=== PATIENT | male | born 1990 | race American Indian/Alaskan Native ===

== ENCOUNTER 2017-10-22 14:01 | Emergency (ER) | payer BC ==
[2017-10-22 14:06] VITALS: BP 130/84
--- NOTE | 2017-10-22 14:46 | Emergency Department Report ---
ED Male HPI - General Chief complaint: Urogenital-Male Stated complaint: CHECK UP Time Seen by Provider: 10/22/17 14:26 Source: patient Mode of arrival: Ambulatory Limitations: No Limitations - History of Present Illness Initial comments: Mr Judge is a 27 year-old man who presents after exposure to STI. tested positive for trichomonas. He denies any symptoms. No penile pain or discharge. No testicular pain or swelling. No dysuria. no fever. Normal bowel and bladder function. No other complaints. Last STI testing 5 years ago. - Related Data Allergies Allergy/AdvReac Type Severity Reaction Status Date / Time No Known Allergies Allergy Unverified 10/22/17 14:03 ED Review of Systems ROS: Stated complaint: CHECK UP Other details as noted in HPI Comment: All other systems reviewed and negative ED Past Medical Hx - Past Medical History Previous Medical History?: No - Surgical History Past Surgical History?: Yes Hx Appendectomy: Yes - Social History Smoking Status: Never Smoker Substance Use Type: None ED Physical Exam - General Limitations: No Limitations General appearance: alert - Head Head exam: Present: atraumatic, normocephalic - Eye Eye exam: Present: normal appearance - ENT ENT exam: Present: normal exam, mucous membranes moist - Respiratory Respiratory exam: Absent: respiratory distress - Cardiovascular Cardiovascular Exam: Present: regular rate, normal rhythm - GI/Abdominal GI/Abdominal exam: Present: soft. Absent: distended, tenderness, guarding, rebound - Neurological Exam Neurological exam: Present: alert, oriented X3 - Skin Skin exam: Present: warm, dry, intact ED Course Vital Signs 10/22/17 14:03 Temperature 97.9 F Pulse Rate 50 L Respiratory 16 Rate Blood Pressure 130/84 O2 Sat by Pulse 100 Oximetry ED Medical Decision Making - Medical Decision Making Mr Judge is a 27 year-old man without PMH who presents after exposure to STD. no symptoms. Genital exam deferred. Sent GC/CT/trich. is send out lab. Empirically treated. Given care instructions, return precautions. Safe for DC to home Critical care attestation.: If time is entered above; I have spent that time in minutes in the direct care of this critically ill patient, excluding procedure time. ED Disposition Clinical Impression: STD exposure Disposition: DC-01 TO HOME OR SELFCARE Is pt being admited?: No Condition: Stable Instructions: Sexually Transmitted Diseases (ED), Safe Sex (ED) Referrals: PRIMARY CARE, [Primary Care Provider] - 3-5 Days
[2017-10-22] MEDS ORDERED: FLAGYL PO ONE (14:51)
[2017-10-22] MEDS ORDERED: ZITHROMAX PO ONE (14:51)
[2017-10-22] MEDS ORDERED: ROCEPHIN IM ONE (14:52)
[2017-10-22] MEDS ORDERED: XYLOCAINE 1% MPF 5 mL INFILTRATI ONE (14:52)
[2017-10-22 16:05] LABS: Bilirubin,Urine NEG (Negative); Blood,Urine NEG (Negative); Color,Urine Yellow (Yellow); Protein,Urine <15 mg/dL mg/dL (Negative); Urobilinogen,Urine < 2.0 mg/dL (<2.0); WBC,Urine < 1.0 /HPF (0.0-6.0)
== END 2017-10-22 15:42 | disposition home or self-care (01) ==
LOC: ED 14:01
DX: Z20.2 Contact with and (suspected) exposure to infections with a predominantly sexual mode of transmission (principal); Z90.49 Acquired absence of other specified parts of digestive tract
CPT/HCPCS: 81001; 87591; 96372; 99283; J0696